=== PATIENT | male | born 1955 | race Caucasian/White ===

== ENCOUNTER → 2018-05-19 | Outpatient (CLI) | payer MEDICARE, OTHER ==
[~2018-05-19] MED LIST: DOCU100 PO; DULO30 PO; ERGO400 PO; FERR325 PO; FOLI1 PO; GABA100 PO; GEMF600 PO; HYDACE5 PO; HYDR1TAB94 PO; HYDROCHLOROTHIAZIDE PO; IBUP600 PO; Keflex500 MG PO; METO50 PO; METOPROLOL TARTRATE PO; Micro-K10 MEQ PO; NAPR500 PO; PANT20 PO; PRAV20 PO; PRAVASTATIN SOD10 MG PO; SELENIUM; SUCR1 PO; TAMS.4ER PO; WELLBUTRIN PO; [UNRECOGNIZED DRUG - REMARK]
[2018-05-19 13:58] LABS: Protein, Urine Quantitative 13.1 mg/dL (0.0-11.9)
[2018-05-19 14:01] LABS: Microalbumin, Urine Quant. 12.2 mg/L (0.000-20.000)
== END ==
LOC: LAB SHORT 10:00 → LAB FUT 05-17 13:40
PROVIDERS: Internal Medicine Nephrology
DX: N18.3 Chronic kidney disease, stage 3 (moderate) (principal); D63.1 Anemia in chronic kidney disease; N25.81 Secondary hyperparathyroidism of renal origin; E55.9 Vitamin D deficiency, unspecified; E78.00 Pure hypercholesterolemia, unspecified; R76.9 Abnormal immunological finding in serum, unspecified; R94.5 Abnormal results of liver function studies; R94.6 Abnormal results of thyroid function studies; D51.8 Other vitamin B12 deficiency anemias; D52.8 Other folate deficiency anemias; D50.9 Iron deficiency anemia, unspecified
CPT/HCPCS: 81050; 82043; 84156

== ENCOUNTER → 2018-05-21 | Outpatient (CLI) | payer MEDICARE, OTHER | END | disposition home or self-care (01) | LOC: OLS 12:03 → LAB SHORT 12:03 → LAB FUT 05-19 10:30 | DX: N18.3 Chronic kidney disease, stage 3 (moderate) (principal); D63.1 Anemia in chronic kidney disease; N25.81 Secondary hyperparathyroidism of renal origin; E55.9 Vitamin D deficiency, unspecified; E78.00 Pure hypercholesterolemia, unspecified; R76.9 Abnormal immunological finding in serum, unspecified; R94.5 Abnormal results of liver function studies; R94.6 Abnormal results of thyroid function studies; D51.8 Other vitamin B12 deficiency anemias; D52.8 Other folate deficiency anemias; D50.9 Iron deficiency anemia, unspecified | CPT/HCPCS: 86335 ==